=== PATIENT | female | born 1990 | race Caucasian/White ===

== ENCOUNTER 2017-09-22 13:41 | Emergency (ER) | payer MEDICAID ==
[2017-09-22] MEDS: ACETAMINOPHEN 325 MG TAB PO (14:45)
[2017-09-22 15:33] LABS: ADD MAN DIFF? NO
[2017-09-22 15:37] LABS: WHITE BLOOD COUNT 9.7 10^3/ul (4.8-10.8)
[2017-09-22 15:37] LABS: BASOPHILS % 0.3 % (0.0-2.0); EOSINOPHILS # 0.5 10^3/ul (0.0-0.5); EOSINOPHILS % 5.4 % (0.0-7.0); HEMATOCRIT 31.7 % (37.0-47.0); HEMOGLOBIN 10.8 g/dl (12.0-16.0); LYMPHOCYTES # 1.6 10^3/ul (0.8-2.9); LYMPHOCYTES % 16.3 % (15.0-51.0); MEAN CORPUSCULAR HEMOGLOBIN 30.8 pg (29.0-33.0); MEAN CORPUSCULAR HGB CONC 34.1 g/dl (32.0-37.0); MEAN CORPUSCULAR VOLUME 90.3 fl (82.0-101.0); MEAN PLATELET VOLUME 10.7 fl (7.4-10.4); MONOCYTE # 0.7 10^3/ul (0.3-0.9); MONOCYTES % 7.1 % (0.0-11.0); NEUTROPHIL # 6.9 10^3/ul (1.6-7.5); NEUTROPHILS % 70.6 % (39.0-77.0); PLATELET COUNT 185 10^3/UL (140-415); RED BLOOD COUNT 3.51 10^6/ul (4.20-5.40); RED CELL DISTRIBUTION WIDTH 13.8 % (11.5-14.5)
[2017-09-22 15:51] LABS: URINE PH (Dip) POC 5.5 (5.0-8.5)
[2017-09-22 15:51] LABS: URINE BLOOD (Dip) POC 3+ (NEGATIVE); URINE GLUCOSE (Dip) POC Negative (NEGATIVE); URINE KETONES (Dip) POC Negative (NEGATIVE); URINE LEUKOCYTE EST (Dip) POC 1+ (NEGATIVE); URINE NITRITE (Dip) POC Negative (NEGATIVE); URINE TOTAL PROTEIN POC 3+ (NEGATIVE)
[2017-09-22 16:05] LABS: ALANINE AMINOTRANSFERASE 26 IU/L (13-69); ALBUMIN 3.8 g/dl (3.3-4.9); ALBUMIN/GLOBULIN RATIO 1.22; ALKALINE PHOSPHATASE 39 IU/L (42-121); ANION GAP 12 (8-16); ASPARTATE AMINO TRANSFERASE 21 IU/L (15-46); BILIRUBIN,INDIRECT 0.4 mg/dl (0-1.1); BILIRUBIN,TOTAL 0.4 mg/dl (0.2-1.3); BLOOD UREA NITROGEN 8 mg/dl (7-20); CALCIUM 8.9 mg/dl (8.4-10.2); CARBON DIOXIDE 24 mmol/L (21-31); CHLORIDE 106 mmol/L (97-110); CREATININE 0.42 mg/dl (0.44-1.00); GLUCOSE 91 mg/dl (70-220); POTASSIUM 3.5 mmol/L (3.5-5.1); SODIUM 138 mmol/L (135-144); TOTAL PROTEIN 6.9 g/dl (6.1-8.1)
== END 2017-09-22 18:04 | disposition home or self-care (01) ==
LOC: FTE 13:41
DX: O23.42 Unspecified infection of urinary tract in pregnancy, second trimester (principal); R10.2 Pelvic and perineal pain; Z3A.14 14 weeks gestation of pregnancy
CPT/HCPCS: 36415; 76801; 80053; 81003; 84702; 85025; 86900; 86901; 99284-25

== ENCOUNTER 2018-01-16 13:22 | Outpatient (CLI) | payer MEDICAID | END 2018-01-16 15:10 | disposition home or self-care (01) | LOC: OBT 13:22 → L-D 13:22 → OBT 15:10 | DX: O98.513 Other viral diseases complicating pregnancy, third trimester (principal); Z3A.32 32 weeks gestation of pregnancy; J06.9 Acute upper respiratory infection, unspecified | CPT/HCPCS: Z7500 ==

== ENCOUNTER 2018-02-22 05:04 | Inpatient (IN) | payer MEDICAID ==
[2018-02-22] MEDS ORDERED: METHYLERGONOVINE 0.2 MG INJ IM ×2 (05:30→23:30)
[2018-02-22] MEDS ORDERED: CARBOPROST 250 MCG INJ IM ×2 (05:30→23:30)
[2018-02-22] MEDS ORDERED: OXYTOCIN 30 UNITS/LR 500 ML IV ×3 (05:30→23:30)
[2018-02-22] MEDS ORDERED: MISOPROSTOL 200 MCG TAB PR ×2 (05:30→23:30)
[2018-02-22 05:54] LABS: ADD MAN DIFF? NO
[2018-02-22 06:03] LABS: WHITE BLOOD COUNT 7.6 10^3/ul (4.8-10.8)
[2018-02-22 06:03] LABS: BASOPHILS % 0.4 % (0.0-2.0); EOSINOPHILS # 0.6 10^3/ul (0.0-0.5); EOSINOPHILS % 7.9 % (0.0-7.0); HEMATOCRIT 28.7 % (37.0-47.0); HEMOGLOBIN 9.6 g/dl (12.0-16.0); LYMPHOCYTES # 1.4 10^3/ul (0.8-2.9); LYMPHOCYTES % 18.3 % (15.0-51.0); MEAN CORPUSCULAR HEMOGLOBIN 30.9 pg (29.0-33.0); MEAN CORPUSCULAR HGB CONC 33.4 g/dl (32.0-37.0); MEAN CORPUSCULAR VOLUME 92.3 fl (82.0-101.0); MEAN PLATELET VOLUME 10.9 fl (7.4-10.4); MONOCYTE # 0.7 10^3/ul (0.3-0.9); MONOCYTES % 9.1 % (0.0-11.0); NEUTROPHIL # 4.8 10^3/ul (1.6-7.5); NEUTROPHILS % 63.5 % (39.0-77.0); PLATELET COUNT 159 10^3/UL (140-415); RED BLOOD COUNT 3.11 10^6/ul (4.20-5.40); RED CELL DISTRIBUTION WIDTH 12.8 % (11.5-14.5)
[2018-02-22 06:15] LABS: PT RATIO 0.9
[2018-02-22 06:22] LABS: INR 0.89; PARTIAL THROMBOPLASTIN TIME 28.9 Sec (25.0-35.0); PROTIME 12.1 Sec (11.9-14.9)
[2018-02-22 07:24] LABS: HEPATITIS B SURFACE ANTIGEN NEGATIVE (NEGATIVE)
[2018-02-22] MEDS: LACTATED RINGER'S 1,000 ML IV ×4 (07:32→22:42)
[2018-02-22] MEDS: SALINE 0.65% 45 ML NAS SPRAY NASAL (09:41)
[2018-02-22 19:39] LABS: RAPID PLASMA REAGIN NONREACTIVE (NR)
[2018-02-22] MEDS ORDERED: morphine 2 MG INJ IV (20:30)
[2018-02-22] MEDS ORDERED: ONDANSETRON 4 MG INJ IV ×2 (20:30→23:30)
[2018-02-22] MEDS ORDERED: KETOROLAC 30 MG INJ IV (20:30)
[2018-02-22] MEDS ORDERED: DIPHENHYDRAMINE 50 MG INJ IV ×2 (20:30→23:30)
[2018-02-22] MEDS ORDERED: NALOXONE (0.4 MG/ML) INJ IV (20:30)
[2018-02-22] MEDS ORDERED: TERBUTALINE 1 MG/ML INJ SC (23:00)
[2018-02-22] MEDS ORDERED: DEXTROSE 5%-LR 1,000 ML IV (23:12)
[2018-02-22] MEDS ORDERED: LACTATED RINGER'S 1,000 ML IV* (23:12)
[2018-02-22] MEDS ORDERED: DIBUCAINE 1% 30 GM OINT PR (23:30)
[2018-02-22] MEDS ORDERED: WITCH HAZEL/GLYCERIN PAD PR (23:30)
[2018-02-22] MEDS ORDERED: OXYCODONE/ASPIRIN (4.88/325) TAB PO (23:30)
[2018-02-22] MEDS ORDERED: SENNA/DOCUSATE NA (8.6MG/50MG) TAB PO (23:30)
[2018-02-22] MEDS ORDERED: LANOLIN 7 GM TUBE TOP (23:30)
[2018-02-22] MEDS ORDERED: ACETAMINOPHEN 325 MG TAB PO (23:30)
[2018-02-22] MEDS ORDERED: HYDROCODONE/APAP (5/325) TAB PO (23:30)
[2018-02-22] MEDS ORDERED: BENZOCAINE 20% 56 ML SPRAY TOP (23:30)
[2018-02-22] MEDS ORDERED: ZOLPIDEM 5 MG TAB PO (23:30)
[2018-02-22] MEDS ORDERED: MAGNESIUM HYDROXIDE 30ML CUP PO (23:30)
[2018-02-23] MEDS ORDERED: IBUPROFEN 600 MG TAB PO
[2018-02-23] MEDS: LACTATED RINGER'S 1,000 ML IV ×3 (07:47→12:23)
[2018-02-23] MEDS ORDERED: morphine SULFATE/PF (10 MG/10 ML) INJ (08:48)
[2018-02-23] MEDS ORDERED: BUPIVACAINE 0.75%/DEXT (SPINAL) 2 ML INJ (08:49)
[2018-02-23] MEDS ORDERED: OXYTOCIN 10 UNIT INJ (08:49)
[2018-02-23] MEDS: CITRIC ACID/NA CITRATE 30 ML CUP PO (12:01)
[2018-02-23] MEDS: METOCLOPRAMIDE 10 MG INJ IV (12:02)
[2018-02-23] MEDS: ONDANSETRON 4 MG INJ IV (12:02)
[2018-02-23] MEDS ORDERED: ZOLPIDEM 5 MG TAB PO (14:00)
[2018-02-23] MEDS ORDERED: HYDROmorphONE 1 MG/5 ML IV SYRINGE IV ×2 (14:00)
[2018-02-23] MEDS ORDERED: ONDANSETRON 4 MG INJ IV ×3 (14:00→18:30)
[2018-02-23] MEDS ORDERED: IPRATROPIUM (NEB) 0.5 MG/2.5 ML AMP HHN (14:00)
[2018-02-23] MEDS ORDERED: KETOROLAC 30 MG INJ IV ×3 (14:00→18:30)
[2018-02-23] MEDS ORDERED: FENTAnyl 50 MCG/ML VIAL IV ×2 (14:00)
[2018-02-23] MEDS ORDERED: DIPHENHYDRAMINE 50 MG INJ IV ×2 (14:00)
[2018-02-23] MEDS ORDERED: HYDROmorphONE 0.5 MG/0.5 ML SYG IV (14:00)
[2018-02-23] MEDS ORDERED: NALOXONE (0.4 MG/ML) INJ IV (14:00)
[2018-02-23] MEDS ORDERED: METHYLERGONOVINE 0.2 MG TAB PO (14:30)
[2018-02-23] MEDS ORDERED: MISOPROSTOL 200 MCG TAB PR (14:30)
[2018-02-23] MEDS ORDERED: DEXTROSE 5%-LR 1,000 ML IV (14:30)
[2018-02-23] MEDS ORDERED: METHYLERGONOVINE 0.2 MG INJ IM (14:30)
[2018-02-23] MEDS ORDERED: CARBOPROST 250 MCG INJ IM (14:30)
[2018-02-23] MEDS ORDERED: LANOLIN 7 GM TUBE TOP (14:30)
[2018-02-23] MEDS: CEFAZOLIN 2 GM/50 ML (PMX) 50 ML IV (14:50)
[2018-02-23] MEDS: OXYTOCIN 30 UNITS/LR 500 ML IV ×2 (15:20→18:50)
[2018-02-23] MEDS: HYDROmorphONE 1 MG/5 ML IV SYRINGE IV (15:45)
[2018-02-23] MEDS: SENNA/DOCUSATE NA (8.6MG/50MG) TAB PO (20:57)
[2018-02-23] MEDS: IBUPROFEN 800 MG TAB PO (22:00)
[2018-02-24] MEDS: LACTATED RINGER'S 1,000 ML IV ×6 (01:01→16:30)
[2018-02-24] MEDS: IBUPROFEN 800 MG TAB PO ×3 (05:34→21:37)
[2018-02-24] MEDS: HYDROmorphONE 0.5 MG/0.5 ML SYG IV ×2 (05:34→10:46)
[2018-02-24] MEDS: HYDROCODONE/APAP (5/325) TAB PO ×3 (07:28→20:43)
[2018-02-24] MEDS ORDERED: MEASLES,MUMPS,RUBELLA VACCINE INJ SC* (09:00)
[2018-02-24] MEDS ORDERED: DIPHTH/TET/ACEL PERTUSS (ADULT) 0.5 ML VIAL IM* (09:00)
[2018-02-24 09:30] LABS: ADD MAN DIFF? NO
[2018-02-24 09:35] LABS: WHITE BLOOD COUNT 8.6 10^3/ul (4.8-10.8)
[2018-02-24 09:35] LABS: BASOPHILS % 0.4 % (0.0-2.0); EOSINOPHILS # 0.3 10^3/ul (0.0-0.5); EOSINOPHILS % 3.4 % (0.0-7.0); HEMATOCRIT 29.5 % (37.0-47.0); LYMPHOCYTES # 1.1 10^3/ul (0.8-2.9); LYMPHOCYTES % 12.7 % (15.0-51.0); MEAN CORPUSCULAR HEMOGLOBIN 31.1 pg (29.0-33.0); MEAN CORPUSCULAR HGB CONC 33.9 g/dl (32.0-37.0); MEAN CORPUSCULAR VOLUME 91.6 fl (82.0-101.0); MEAN PLATELET VOLUME 10.6 fl (7.4-10.4); MONOCYTE # 0.7 10^3/ul (0.3-0.9); MONOCYTES % 8.2 % (0.0-11.0); NEUTROPHIL # 6.4 10^3/ul (1.6-7.5); NEUTROPHILS % 74.8 % (39.0-77.0); PLATELET COUNT 146 10^3/UL (140-415); RED BLOOD COUNT 3.22 10^6/ul (4.20-5.40); RED CELL DISTRIBUTION WIDTH 12.9 % (11.5-14.5)
[2018-02-24] MEDS: SENNA/DOCUSATE NA (8.6MG/50MG) TAB PO ×2 (10:45→20:42)
[2018-02-25] MEDS: HYDROCODONE/APAP (5/325) TAB PO ×3 (00:09→13:17)
[2018-02-25] MEDS: LACTATED RINGER'S 1,000 ML IV ×4 (00:30→20:47)
[2018-02-25] MEDS: IBUPROFEN 800 MG TAB PO ×3 (05:32→21:43)
[2018-02-25] MEDS: SENNA/DOCUSATE NA (8.6MG/50MG) TAB PO ×2 (15:15→21:43)
[2018-02-25] MEDS: MAGNESIUM HYDROXIDE 30ML CUP PO (18:29)
[2018-02-26] MEDS: HYDROCODONE/APAP (5/325) TAB PO ×2 (00:19→08:22)
[2018-02-26] MEDS: IBUPROFEN 800 MG TAB PO ×2 (05:54→14:04)
[2018-02-26] MEDS: SENNA/DOCUSATE NA (8.6MG/50MG) TAB PO (08:22)
[2018-02-26] MEDS: DIPHTH/TET/ACEL PERTUSS (ADULT) 0.5 ML VIAL IM* (09:08)
[2018-02-26] MEDS: MEASLES,MUMPS,RUBELLA VACCINE INJ SC* (09:09)
== END 2018-02-26 15:55 | disposition home or self-care (01) | DRG 765 ==
LOC: L-D 05:04 → PP1 02-23 17:52
PROVIDERS: Obstetrics & Gynecology
PROC: 10D00Z1 Extraction of Products of Conception, Low, Open Approach (ICD-10-PCS; principal; 2018-02-24)
PROC: 0UB70ZZ Excision of Bilateral Fallopian Tubes, Open Approach (ICD-10-PCS; 2018-02-24)
DX: O69.81X1 Labor and delivery complicated by cord around neck, without compression, fetus 1 (principal); D62 Acute posthemorrhagic anemia; O69.81X2 Labor and delivery complicated by cord around neck, without compression, fetus 2; O30.033 Twin pregnancy, monochorionic/diamniotic, third trimester; Z3A.37 37 weeks gestation of pregnancy; Z37.2 Twins, both liveborn
CPT/HCPCS: 85025; 85610; 85730; 86592; 86850; 86900; 86901; 87340; 88302; 88307; 99464